=== PATIENT | female | born 1995 | race Caucasian/White ===

== ENCOUNTER 2018-07-16 15:48 | Inpatient (IN) | payer MEDICAID ==
[~2018-07-16] VITALS: Ht 157.5 cm; Wt 52.2 kg
[2018-07-16] MEDS ORDERED: IV NORMAL SALINE 1000 ML BAG IV ONE (16:45)
[2018-07-16 16:54] LABS: BASOPHILS # (AUTO) 0.1 K/uL (0.0-8.0); BASOPHILS % (AUTO) 0.6 % (0.0-2.0); EOSINOPHILS % (AUTO) 0.4 % (0.0-7.0); HEMATOCRIT 39.8 % (31.2-41.9); HEMOGLOBIN 13.5 g/dL (10.9-14.3); LYMPHOCYTES # (AUTO) 1.9 K/uL (20.0-40.0); MEAN CORPUSCULAR HEMOGLOBIN 27.9 uug (24.7-32.8); MEAN CORPUSCULAR HGB CONC 34 g/dL (32.3-35.6); MEAN CORPUSCULAR VOLUME 82.4 fL (75.5-95.3); MONOCYTES # (AUTO) 0.5 K/uL (2.0-10.0); MONOCYTES % (AUTO) 6.2 % (0.0-11.0); NEUTROPHILS % (AUTO) 70.8 % (38.5-71.5); PLATELET COUNT (AUTO) 383 K/uL (179-408); RED BLOOD CELL COUNT(AUTO) 4.83 MIL/uL (3.63-4.92); WHITE BLOOD COUNT (AUTO) 8.5 K/uL (3.8-11.8)
--- NOTE | 2018-07-16 17:06 | NUR ---
PATIENT SIGNED WAIVER WITH A CHANCE OF BEING . EXPLANATION WAS GIVEN OF THE HARMS IT MAY POSE TO THE CHILD AND HERSELF, PATIENT AFFIRMED TO HAVE PROCEDURE OF C-SPINE PATIENT SIGNED WAIVER 16:54, 07/16/2018
[2018-07-16 17:09] LABS: BILIRUBIN,DIRECT 0.3 mg/dL (0.0-0.2); BILIRUBIN,TOTAL 1.8 mg/dL (0.2-1.0); CREATININE 0.6 mg/dL (0.6-1.3); POTASSIUM 3.6 mmol/L (3.5-5.1)
[2018-07-16] MEDS ORDERED: METOPROLOL TARTRATE 5 MG/5 ML VIAL IVP ONE ×4 (18:00→19:00)
--- NOTE | 2018-07-16 19:39 | NUR ---
Pt. admitted to Telemetry, under care of Dr. Alejandro Moura. Diagnosis: Thyroid Storm Belongs List completed
--- NOTE | 2018-07-16 20:10 | NUR ---
ADMITTED PATIENT IN THE TELE UNIT UNDER THE CARE OF DR. PAVON. BELONGING LIST DONE, FAMILY AT BEDSIDE.
[2018-07-16] MEDS ORDERED: ACETAMINOPHEN 325 MG TABLET PO PRN (21:00)
[2018-07-16] MEDS ORDERED: MAGNESIUM HYDROXIDE 30 ML LIQUID UDC PO PRN (21:00)
[2018-07-16] MEDS ORDERED: LORAZEPAM 2 MG/1 ML VIAL IV PRN (21:00)
[2018-07-16 21:34] VITALS: BP 108/67
[2018-07-16] MEDS: IV NS 1000 ML 1,000 ML IV PRN (21:45)
--- NOTE | 2018-07-16 23:39 | NUR ---
PATIENT COMPLAIN OF COUGH AND CONGESTIONS, NOTIFY DR. SIMS WITH ORDER OF ROBITUSSIN WITH CODEINE 10 ML PO EVERY SIX HOURS NEEDED.
[2018-07-16] MEDS ORDERED: GUAIFENESIN/CODEINE 5 ML LIQUID UDC PO PRN (23:45)
[2018-07-16] MEDS: METOPROLOL TARTRATE 25 MG TABLET PO SCH (23:56)
[2018-07-17 02:08] VITALS: BP 109/52
[2018-07-17 05:31] VITALS: BP 101/63
--- NOTE | 2018-07-17 05:39 | NUR ---
PATIENT AWAKE, SLEPT MOST PART OF THE NIGHT, NO SOB NO CHEST PAIN, TELE MONITOR SINUS RHYTHM FROM 93 TO 106. NO COMPLAIN OF ANY PAIN OR DISCOMFORT AT THIS TIME. NO EPISODE OF COUGHING NOTED. BOYFRIEND AT BEDSIDE. CALL LIGHT WITHIN REACH.
[2018-07-17] MEDS: METOPROLOL TARTRATE 25 MG TABLET PO SCH ×2 (06:05→12:38)
[2018-07-17 07:29] LABS: BILIRUBIN,TOTAL 1.4 mg/dL (0.2-1.0); CREATININE 0.6 mg/dL (0.6-1.3); MAGNESIUM 1.7 mg/dL (1.8-2.4); PHOSPHOROUS 3.5 mg/dL (2.5-4.9); POTASSIUM 3.6 mmol/L (3.5-5.1); TOTAL PROTEIN, SERUM 6.6 g/dL (6.4-8.2)
[2018-07-17 07:35] LABS: BASOPHILS % (AUTO) 0.5 % (0.0-2.0); EOSINOPHILS # (AUTO) 0.1 K/uL (0.0-0.7); EOSINOPHILS % (AUTO) 1.1 % (0.0-7.0); HEMATOCRIT 36.4 % (31.2-41.9); HEMOGLOBIN 12.1 g/dL (10.9-14.3); LYMPHOCYTES # (AUTO) 2.9 K/uL (20.0-40.0); LYMPHOCYTES % (AUTO) 34.6 % (20.5-51.5); MEAN CORPUSCULAR HEMOGLOBIN 28.4 uug (24.7-32.8); MEAN CORPUSCULAR HGB CONC 33 g/dL (32.3-35.6); MEAN CORPUSCULAR VOLUME 85.2 fL (75.5-95.3); MONOCYTES # (AUTO) 0.7 K/uL (2.0-10.0); MONOCYTES % (AUTO) 7.9 % (0.0-11.0); NEUTROPHILS # (AUTO) 4.6 K/uL (1.8-8.9); NEUTROPHILS % (AUTO) 55.9 % (38.5-71.5); PLATELET COUNT (AUTO) 334 K/uL (179-408); RED BLOOD CELL COUNT(AUTO) 4.27 MIL/uL (3.63-4.92); WHITE BLOOD COUNT (AUTO) 8.3 K/uL (3.8-11.8)
--- NOTE | 2018-07-17 07:44 | NUR ---
BEGINNING OF SHIFT PATIENT AWAKE, NO SOB NO CHEST PAIN, TELE MONITOR SINUS RHYTHM FROM 9OS. NO COMPLAIN OF ANY PAIN OR DISCOMFORT AT THIS TIME. NO EPISODE OF COUGHING NOTED. BOYFRIEND AT BEDSIDE. COMPLAINED OF INSOMNIA.SAFETY REINFORCED, CALL LIGHT WITHIN REACH.
[2018-07-17] MEDS ORDERED: GUAIFENESIN/CODEINE 5 ML LIQUID UDC PO PRN (08:15)
[2018-07-17] MEDS ORDERED: LORAZEPAM 2 MG/1 ML VIAL IV PRN (08:30)
[2018-07-17] MEDS: IV NS 1000 ML 1,000 ML IV PRN (09:16)
[2018-07-17] MEDS ORDERED: MAGNESIUM OXIDE 400 MG TABLET PO ONE (10:15)
[2018-07-17] MEDS ORDERED: POTASSIUM CHLORIDE 20 MEQ TAB.PRT.SR PO ONE (10:15)
[2018-07-17 12:00] VITALS: BP 108/62
[2018-07-17 12:38] VITALS: BP 108/62
--- NOTE | 2018-07-17 15:48 | NUR ---
DISCHARGED PATIENT IS GOING AMA, GOING TO BE TAKEN BY MOTHER AND OTHER FAMILY MEMBERS. VS 97/58, RR 18 , HR 77, o2 98 ON RA. PATIENT SIGNED RELEASE OF RECORDS TO MOM PAPERS AND EDUCATION FOR DISCHARGE WELL, AMA FORM WAS SIGNED ALSO. PATIENT DOESN'T HAVE ANY HEART PALPITATIONS OR ANY DISTRESS. WAS TAKEN DOWN STAIR BY WHEEL CHAIR URSZULA PUCKETT
== END 2018-07-17 15:40 | disposition left against medical advice (07) | DRG 566 ==
LOC: ER 15:48 → EDBD 15:48 → TELE 19:49
PROVIDERS: ADMIT Internal Medicine; ATTEND Internal Medicine
DX: O99.281 Endocrine, nutritional and metabolic diseases complicating pregnancy, first trimester (principal); E83.42 Hypomagnesemia; E05.90 Thyrotoxicosis, unspecified without thyrotoxic crisis or storm; F41.9 Anxiety disorder, unspecified; J06.9 Acute upper respiratory infection, unspecified; O30.001 Twin pregnancy, unspecified number of placenta and unspecified number of amniotic sacs, first trimester; Z3A.00 Weeks of gestation of pregnancy not specified; Z83.2 Family history of diseases of the blood and blood-forming organs and certain disorders involving the immune mechanism; R79.89 Other specified abnormal findings of blood chemistry; K59.00 Constipation, unspecified; S13.4XXA Sprain of ligaments of cervical spine, initial encounter; V43.92XA Unspecified car occupant injured in collision with other type car in traffic accident, initial encounter; Y92.410 Unspecified street and highway as the place of occurrence of the external cause; Z82.49 Family history of ischemic heart disease and other diseases of the circulatory system; Z82.3 Family history of stroke; E61.1 Iron deficiency; O34.81 Maternal care for other abnormalities of pelvic organs, first trimester; N83.201 Unspecified ovarian cyst, right side
CPT/HCPCS: 36415; 70030-TC; 76856; 83550; 83735; 84100; 84443; 85025; 93005; A4663; G0378; J3490; J7030